=== PATIENT | male | born 1955 | race Caucasian/White ===

== ENCOUNTER 2016-10-09 21:08 | Emergency (ER) | payer BC ==
[2016-10-09] MEDS ORDERED: DILTIAZEM HCL/D5W 125 MG/125 ML RTUINJ IV ONE (21:11)
[2016-10-09] MEDS ORDERED: DILTIAZEM HCL/D5W 125 ML IV PRN (21:11)
[2016-10-09] MEDS ORDERED: NORMAL SALINE 1000 ML 1,000 ML IV PRN ×2 (21:14→22:21)
--- NOTE | 2016-10-09 21:14 | ER Document Report ---
ED Cardiac - General Stated Complaint: GENERAL WEAKNESS Time seen by provider: 21:11 Mode of Arrival: Medic Information source: Patient, Emergency Med Personnel - HPI Patient complains to provider of: Palpitations Was the onset of pain: Sudden Quality of pain: None Associated symptoms: Palpitations Exacerbated by: Denies Relieved by: Nothing Similar symptoms previously: Yes Recently seen / treated by doctor: Yes Notes: Patient is a 61-year-old male with a history of atrial fibrillation, currently takes Cardizem 240 mg daily, denies missing any doses of this, was brought to emergency room by EMS for elevated heart rate, patient denies any chest pain or shortness of breath, he had a physical earlier in the day and received the influenza and pneumonia vaccinations, states he has never had these vaccinations before so he is unsure whether it is a result of these vaccinations , however he does report his heart rate was in the 130s during his appointment he should denies any other recent illness or injury, received 30 mg of IV Cardizem in route via EMS Past Medical History - General Information source: Patient, Emergency Med Personnel - Social History Smoking Status: Current Every Day Smoker Family History: Reviewed & Not Pertinent Review of Systems - Review of Systems Constitutional: No symptoms reported EENT: No symptoms reported Cardiovascular: Palpitations, Heart racing Respiratory: No symptoms reported Gastrointestinal: No symptoms reported Genitourinary: No symptoms reported Male Genitourinary: No symptoms reported Musculoskeletal: No symptoms reported Skin: No symptoms reported Hematologic/Lymphatic: No symptoms reported Neurological/Psychological: No symptoms reported -: Yes All other systems reviewed and negative Physical Exam - Vital signs Vitals: Pulse Ox 98 10/09/16 21:11 Interpretation: Tachycardic - General General appearance: Appears well, Alert - HEENT Head: Normocephalic, Atraumatic Eyes: Normal Pupils: PERRL - Respiratory Respiratory status: No respiratory distress Chest status: Nontender Breath sounds: Normal Chest palpation: Normal - Cardiovascular Rhythm: Irregularly irregular, Tachycardia Murmur: No - Abdominal Inspection: Normal Distension: No distension Bowel sounds: Normal Tenderness: Nontender Organomegaly: No organomegaly - Back Back: Normal, Nontender - Extremities General upper extremity: Normal inspection, Nontender, Normal color, Normal ROM , Normal temperature General lower extremity: Normal inspection, Nontender, Normal color, Normal ROM , Normal temperature, Normal weight bearing. No: Crystal's sign - Neurological Neuro grossly intact: Yes Cognition: Normal Orientation: AAOx4 Yanni Coma Scale Eye Opening: Spontaneous Yanni Coma Scale Verbal: Oriented Yanni Coma Scale Motor: Obeys Commands [place] Coma Scale Total: 15 Speech: Normal Motor strength normal: LUE, RUE, LLE, RLE Sensory: Normal - Psychological Associated symptoms: Normal affect, Normal mood - Skin Skin Temperature: Warm Skin Moisture: Dry Skin Color: Normal Course - Re-evaluation Re-evalutation: 10/10/16 01:58 Patient has been resting comfortably, Cardizem drip his been discontinued for greater than 2 hours, his heart rate has remained less than 100 the entire time , he reports that he wants to go home, we will repeat an EKG and attempt to ambulate patient, patient will likely be discharged home with instructions for follow-up 10/10/16 02:20 Patient able to ambulate with a steady gait, he reports feeling much better and wants to go home, states he will call a cab to get home safely, advised to return if symptoms worsen or any additional concerns, patient acknowledges understanding and agreement with this plan - Vital Signs Vital signs: Temp Pulse Resp BP Pulse Ox 98.2 F 93 16 134/75 H 98 10/10/16 02:30 10/10/16 02:30 10/10/16 02:30 10/10/16 02:30 10/10/16 02:30 - Laboratory Result Diagrams: 10/09/16 21:20 10/09/16 21:20 Laboratory results interpreted by me: 10/09/16 10/09/16 21:20 21:20 WBC 10.6 H RBC 3.91 L MCV 103 H MCH 35.2 H Plt Count 143 L BUN 29 H Creatinine 1.39 H Est GFR (Non-Af Amer) 52 L Calcium 8.2 L - Diagnostic Test Radiology reviewed: Image reviewed, Reports reviewed - EKG Interpretation by Me EKG shows normal: Sinus rhythm Rate: Tachycardia Additional EKG results interpreted by me: 10/10/16 02:20 Repeat EKG shows a normal sinus rhythm at a rate of 95 Critical Care Note - Critical Care Note Total time excluding time spent on procedures (mins): 60 Comments: Patient arrived to the emergency room with tachycardia consistent with A. fib with RVR, requiring IV Cardizem drip Discharge - Discharge Clinical Impression: Atrial fibrillation Qualifiers: Atrial fibrillation type: paroxysmal Qualified Code(s): I48.0 - Paroxysmal atrial fibrillation Acute alcohol intoxication Qualifiers: Complication of substance-induced condition: uncomplicated Qualified Code(s): F10.120 - Alcohol abuse with intoxication, uncomplicated Condition: Stable Disposition: HOME, SELF-CARE Instructions: Atrial Fibrillation ([facility]), Acute Alcohol Intoxication ([facility]), Stop Smoking ([facility]) Additional Instructions: Follow up with your primary care provider in one to 2 days. Return to the emergency room immediately if symptoms worsen or any additional concerns.
[2016-10-09 21:49] LABS: ABSOLUTE BASOPHILS # (AUTO) 0.1 10^3/uL (0.0-0.2); ABSOLUTE EOSINOPHILS # (AUTO) 0.2 10^3/uL (0.0-0.6); ABSOLUTE LYMPHOCYTES (AUTO) 3.6 10^3/uL (0.5-4.7); ABSOLUTE NEUT (AUTO) 5.8 10^3/uL (1.7-8.2); BASOPHILS % (AUTO) 0.5 % (0-2); EOSINOPHILS % (AUTO) 1.7 % (0-6); HEMATOCRIT 40.2 % (37.9-51.0); HEMOGLOBIN 13.8 g/dL (13.5-17.0); HGB HCT DIFFERENCE 1.2; LYMPHOCYTES % (AUTO) 34.1 % (13-45); MEAN CORPUSCULAR HEMOGLOBIN 35.2 pg (27.0-33.4); MEAN CORPUSCULAR HGB CONC 34.3 g/dL (32.0-36.0); MEAN CORPUSCULAR VOLUME 103 fl (80-97); MONOCYTES % (AUTO) 9.4 % (3-13); RED BLOOD COUNT 3.91 10^6/uL (4.35-5.55); RED CELL DISTRIBUTION WIDTH 13.4 % (11.5-14.0); SEGMENTED NEUTROPHILS % (AUTO) 54.3 % (42-78); WHITE BLOOD COUNT 10.6 10^3/uL (4.0-10.5)
[2016-10-09 21:56] LABS: PARTIAL THROMBOPLASTIN TIME 26.2 SEC (23.5-35.8); PROTHROMBIN TIME 13.5 SEC (11.4-15.4)
[2016-10-09 22:05] LABS: ALANINE AMINOTRANSFERASE 36 U/L (21-72); ALBUMIN 3.8 g/dL (3.5-5.0); ALCOHOL 248 mg/dL (NONE DETECTED); ALKALINE PHOSPHATASE 66 U/L (38-126); ANION GAP 12 (5-19); ASPARTATE AMINO TRANSFERASE 53 U/L (17-59); BILIRUBIN,TOTAL 0.5 mg/dL (0.2-1.3); BLOOD UREA NITROGEN 29 mg/dL (7-20); CALCIUM 8.2 mg/dL (8.4-10.2); CARBON DIOXIDE 23 mmol/L (22-30); CHLORIDE 102 mmol/L (98-107); CREATINE KINASE 70 U/L (55-170); CREATININE RESULT 1.39 mg/dL (0.52-1.25); GLUCOSE 81 mg/dL (75-110); SODIUM 137.3 mmol/L (137-145); TOTAL PROTEIN 6.4 g/dL (6.3-8.2)
[2016-10-09 22:17] LABS: CREATINE KINASE MB 1.63 ng/mL (<4.55)
[2016-10-09 22:18] LABS: TROPONIN I < 0.012 ng/mL
[2016-10-10 02:34] VITALS: BP 134/75
--- NOTE | 2016-10-10 13:44 | EKG REPORT ---
SEVERITY:- OTHERWISE NORMAL ECG - SINUS TACHYCARDIA : Confirmed by: Sol Melendrez MD 10-Oct-2016 13:43:23
--- NOTE | 2016-10-10 13:44 | EKG REPORT ---
SEVERITY:- BORDERLINE ECG - SINUS RHYTHM LOW VOLTAGE IN FRONTAL LEADS BORDERLINE T ABNORMALITIES, ANT-LAT LEADS : Confirmed by: Sol Melendrez MD 10-Oct-2016 13:43:18
== END 2016-10-10 02:30 | disposition home or self-care (01) ==
LOC: ER 21:08
DX: I48.0 Paroxysmal atrial fibrillation (principal); F10.120 Alcohol abuse with intoxication, uncomplicated; F17.200 Nicotine dependence, unspecified, uncomplicated; Z79.899 Other long term (current) drug therapy
CPT/HCPCS: 36415; 71010; 80053; 80307; 82550; 82553; 84484; 85025; 85610; 85730; 93005; 93010; 99291

== ENCOUNTER 2017-03-13 22:47 | Observation (INO) | payer BC ==
[2017-03-13 23:05] LABS: ABSOLUTE BASOPHILS # (AUTO) 0.1 10^3/uL (0.0-0.2); ABSOLUTE EOSINOPHILS # (AUTO) 0.1 10^3/uL (0.0-0.6); ABSOLUTE LYMPHOCYTES (AUTO) 3.6 10^3/uL (0.5-4.7); ABSOLUTE MONOCYTES (AUTO) 0.8 10^3/uL (0.1-1.4); ABSOLUTE NEUT (AUTO) 4.7 10^3/uL (1.7-8.2); BASOPHILS % (AUTO) 0.6 % (0-2); EOSINOPHILS % (AUTO) 0.7 % (0-6); HEMATOCRIT 36.3 % (37.9-51.0); HEMOGLOBIN 12.2 g/dL (13.5-17.0); HGB HCT DIFFERENCE 0.3; LYMPHOCYTES % (AUTO) 39.4 % (13-45); MEAN CORPUSCULAR HEMOGLOBIN 35.7 pg (27.0-33.4); MEAN CORPUSCULAR HGB CONC 33.7 g/dL (32.0-36.0); MEAN CORPUSCULAR VOLUME 106 fl (80-97); MONOCYTES % (AUTO) 8.6 % (3-13); RED BLOOD COUNT 3.43 10^6/uL (4.35-5.55); RED CELL DISTRIBUTION WIDTH 13.6 % (11.5-14.0); SEGMENTED NEUTROPHILS % (AUTO) 50.7 % (42-78); WHITE BLOOD COUNT 9.2 10^3/uL (4.0-10.5)
[2017-03-13 23:12] LABS: PROTHROMBIN TIME 12.9 SEC (11.4-15.4)
[2017-03-13 23:13] LABS: PARTIAL THROMBOPLASTIN TIME 24.8 SEC (23.5-35.8)
--- NOTE | 2017-03-13 23:16 | ER Document Report ---
ED General - General Chief Complaint: Syncope Stated Complaint: FALL NECK PAIN Time Seen by Provider: 03/13/17 23:15 Notes: 61-year-old male presents with complaint of a syncopal episode. Patient fell backwards and hit his head in the driveway. Patient says this happened after he got his car. He does not actually remember the fall. He cannot remember if he had chest pain or shortness of breath or palpitations before or after the fall. When paramedics first picked him up he was asking the same questions over and over again. He does have a history of atrial fibrillation. He is not on blood thinners. He does take Cardizem for that. He does admit that he drinks every day. He says he does not go through alcohol withdrawal when he does not drink. Cigarettes. He denies any history of coronary disease. He currently complains of headache in the back of his head he hit his head on the concrete. He also complains of some pain in his lower back and sacral area. He denies recent illnesses or fevers. He has previous history of melanoma but has been cancer free for 10 years. - Related Data Allergies/Adverse Reactions: No Known Allergies Allergy (Unverified 03/14/17 01:30) Past Medical History - Social History Smoking Status: Current Every Day Smoker Frequency of alcohol use: Heavy Drug Abuse: None Family History: Reviewed & Not Pertinent - Past Medical History Cardiac Medical History: Reports: Hx Atrial Fibrillation, Hx Hypertension Review of Systems - Review of Systems Notes: My Normal Review Basic REVIEW OF SYSTEMS: CONSTITUTIONAL : Denies fever, chills, or sweats. Denies recent illness. EENT: Denies eye, ear, throat, or mouth pain or symptoms. Denies nasal or sinus congestion. CARDIOVASCULAR: Denies chest pain. RESPIRATORY: Denies cough, cold, or chest congestion. Denies shortness of breath, difficulty breathing, or wheezing. GASTROINTESTINAL: Denies abdominal pain. Denies nausea, vomiting, or diarrhea. Denies constipation. Last BM: MUSCULOSKELETAL: Denies neck or back pain or joint pain or swelling. SKIN: Denies rash or skin lesions. HEMATOLOGIC : Denies easy bruising or bleeding. NEUROLOGICAL: syncopal episode. has a headache. Denies weakness or paralysis or loss of use of either side. Denies problems with gait or speech. Denies sensory or motor loss. ALL OTHER SYSTEMS REVIEWED AND NEGATIVE. Physical Exam - Vital signs Vitals: Resp Pulse Ox 15 99 03/13/17 22:51 03/13/17 22:51 - Notes Notes: General Appearance: Well nourished, alert, cooperative, no acute distress, mild obvious discomfort. Vitals: reviewed, See vital signs table. Head: no swelling or tenderness to the head Eyes: PERRL, EOMI, Conjuctiva clear Mouth: No decreasd moisture Throat: No tonsillar inflammation, No airway obstruction, No lymphadenopathy Neck: Supple, no neck tendernes Lungs: No wheezing, No rales, No rhonci, No accessory muscle use, good air exchange bilaterally. Heart: Normal rate, Regular rythm, No murmur, no rub Abdomen: Normal BS, soft, No rigidity, No abdominal tenderness, No guarding, no rebound, no abdominal masses, no organomegaly. Large surgical scar on abdomen. Back: No thoracic tenderness to plpation. Pain to palpation over lumbar sacral joint. no stepoffs or deformities. Extremities: strength 5/5 in all extremities, good pulses in all extremities, no swelling or tenderness in the extremities, no edema. Skin: warm, dry, appropriate color, no rash Neuro: speech clear, oriented x 3, normal affect, responds appropriately to questions. Cranial nerves 2-12 are intact. distal sensation intact. Patient has good and equal strength in all 4 extremities. Course - Vital Signs Vital signs: Temp Pulse Resp BP Pulse Ox 98.3 F 14 103/88 H 96 03/14/17 01:15 03/14/17 01:45 03/14/17 00:15 03/14/17 01:45 - Laboratory Result Diagrams: 03/13/17 22:55 03/13/17 22:55 Laboratory results interpreted by me: 03/13/17 03/13/17 22:55 22:55 RBC 3.43 L Hgb 12.2 L Hct 36.3 L MCV 106 H MCH 35.7 H Potassium 3.2 L Calcium 8.2 L Direct Bilirubin 0.5 H - EKG Interpretation by Me Additional EKG results interpreted by me: 03/13/17 23:16 Is reviewed and interpreted by me. EKG shows sinus rhythm with a rate of [address] segment elevation or depression. Patient does have new T-wave inversions in the lateral precordial leads in comparison to her old EKG from October 10, 2016. MI interval, QRS duration, QTc intervals are within normal range. 03/14/17 02:01 EKG #2 is reviewed and interpreted by me. EKG shows normal sinus rhythm with a rate of [address] segment elevation or depression. Patient does have some T-wave inversions in the lateral precordial leads which are not progressing and are unchanged in comparison to the EKG performed earlier today. MI interval, QRS duration are within normal range. QTc interval is prolonged. - Transfer of Care Notes: 03/14/17 02:15 Patient has been awake and appropriate since arriving to the ER. The scans are negative. His initial heart enzymes are negative. My only concern is that he does have some T-wave inversions in the lateral precordial leads which are new in comparison to his old EKG. I did repeat his EKG and they have not progressed. His cardiac enzymes remain negative and he has no chest pain. He does have history of A. fib but currently is not in atrial fibrillation. I spoke with the hospitalist who agrees to admit the patient for further workup of his syncope. Dictation of this chart was performed using voice recognition software; therefore, there may be some unintended grammatical errors. Discharge - Discharge Clinical Impression: Syncope Qualifiers: Syncope type: unspecified Qualified Code(s): R55 - Syncope and collapse Condition: Stable Disposition: ADMITTED OBSERVATION Admitting Provider: Hospitalist Unit Admitted: Telemetry
--- NOTE | 2017-03-13 23:20 | RADIOLOGY REPORT (SQ) ---
EXAM DESCRIPTION: CT HEAD WITHOUT COMPLETED DATE/TIME: 03/13/2017 11:12 pm REASON FOR STUDY: fall COMPARISON: None. TECHNIQUE: Axial images acquired through the brain without intravenous contrast. Images reviewed wi th bone, brain and subdural windows. Images stored on PACS. All CT scanners at this facility use dose modulation, iterative reconstruction, and/or weight based d osing when appropriate to reduce radiation dose to as low as reasonably achievable (ALARA). [facility]: Dose Right [facility]: CareDose [facility]: Dose Right [facility]: Teradose 4D [facility]: [employer] RADIATION DOSE: 64.61mGy. LIMITATIONS: None. FINDINGS: VENTRICLES: Prominent. CEREBRUM: No masses. No hemorrhage. No midline shift. Areas of low density in the white matter mos t likely due to chronic micro-vascular ischemic change. No evidence for acute infarction. CEREBELLUM: No masses. No hemorrhage. No alteration of density. No evidence for acute infarction. EXTRAAXIAL SPACES: Age-related involutional change. No fluid collections. No masses. ORBITS AND GLOBE: No intra- or extraconal masses. Normal contour of globe without masses. CALVARIUM: No fracture. PARANASAL SINUSES: No fluid or mucosal thickening. SOFT TISSUES: No mass or hematoma. OTHER: No other significant finding. IMPRESSION: CHRONIC CHANGES OF ATROPHY AND MICROVASCULAR ISCHEMIA. NO ACUTE PROCESS. TECHNICAL DOCUMENTATION: JOB ID: [id number] Quality ID # [id number]: Final reports with documentation of one or more dose reduction techniques (e.g., Au tomated exposure control, adjustment of the mA and/or kV according to patient size, use of iterative reconstruction technique) 2010 [employer]- All Rights Reserved
--- NOTE | 2017-03-13 23:21 | RADIOLOGY REPORT (SQ) ---
EXAM DESCRIPTION: CT CERVICAL SPINE WITHOUT COMPLETED DATE/TIME: 03/13/2017 11:12 pm REASON FOR STUDY: fall COMPARISON: None. TECHNIQUE: Axial images acquired through the cervical spine without intravenous contrast. Images re viewed with lung, soft tissue and bone windows. Reconstructed coronal and sagittal MPR images review ed. Images stored on PACS. All CT scanners at this facility use dose modulation, iterative reconstruction, and/or weight based d osing when appropriate to reduce radiation dose to as low as reasonably achievable (ALARA). [facility]: Dose Right [facility]: CareDose [facility]: Dose Right [facility]: Teradose 4D [facility]: [employer] RADIATION DOSE: 27.71 mGy. LIMITATIONS: None. FINDINGS: ALIGNMENT: Anatomic. MINERALIZATION: Normal. VERTEBRAL BODIES: No fractures or dislocation. DISCS: Multilevel disc space narrowing with osteophytes. FACETS, LATERAL MASSES, POSTERIOR ELEMENTS: Facet arthropathy. No fractures. No dislocation. No ac iesha findings. HARDWARE: None in the spine. VISUALIZED RIBS: No fractures. LUNG APICES AND SOFT TISSUES: No significant or acute findings. OTHER: No other significant finding. IMPRESSION: CHRONIC DEGENERATIVE CHANGES. NO ACUTE FINDINGS. TECHNICAL DOCUMENTATION: JOB ID: [id number] Quality ID # [id number]: Final reports with documentation of one or more dose reduction techniques (e.g., Au tomated exposure control, adjustment of the mA and/or kV according to patient size, use of iterative reconstruction technique) 2010 [employer]- All Rights Reserved
[2017-03-13 23:33] LABS: ALANINE AMINOTRANSFERASE 69 U/L (21-72); ALBUMIN 3.6 g/dL (3.5-5.0); ALKALINE PHOSPHATASE 68 U/L (38-126); ANION GAP 12 (5-19); ASPARTATE AMINO TRANSFERASE 55 U/L (17-59); BILIRUBIN,DIRECT 0.5 mg/dL (0.0-0.4); BILIRUBIN,TOTAL 0.6 mg/dL (0.2-1.3); BLOOD UREA NITROGEN 13 mg/dL (7-20); CALCIUM 8.2 mg/dL (8.4-10.2); CARBON DIOXIDE 25 mmol/L (22-30); CHLORIDE 103 mmol/L (98-107); CREATINE KINASE 65 U/L (55-170); GLUCOSE 99 mg/dL (75-110); POTASSIUM 3.2 mmol/L (3.6-5.0); SODIUM 139.6 mmol/L (137-145); TOTAL PROTEIN 6.4 g/dL (6.3-8.2)
[2017-03-13 23:45] LABS: CREATINE KINASE MB 1.03 ng/mL (<4.55)
[2017-03-13 23:49] LABS: TROPONIN I < 0.012 ng/mL
[2017-03-14 00:28] LABS: MAGNESIUM 1.8 mg/dL (1.6-2.3)
[2017-03-14 00:35] LABS: APPEARANCE,URINE CLEAR; BILIRUBIN,URINE NEGATIVE (NEGATIVE); GLUCOSE, URINE NEGATIVE (NEGATIVE); KETONES,URINE NEGATIVE (NEGATIVE); LEUKOCYTE ESTERASE,URINE NEGATIVE (NEGATIVE); NITRITE,URINE NEGATIVE (NEGATIVE); PROTEIN,URINE NEGATIVE (NEGATIVE); URINE SPECIFIC GRAVITY 1.004; UROBILINOGEN,URINE NEGATIVE mg/dL (<2.0)
[2017-03-14 01:05] LABS: URINE BARBITURATES SCREEN NEGATIVE; URINE METHADONE SCREEN NEGATIVE; URINE OPIATES LOW UNCONFIRMED POSITIVE; URINE PHENCYCLIDINE SCREEN NEGATIVE
[2017-03-14] MEDS ORDERED: ACETAMINOPHEN 325 MG TABLET PO ONE (01:35)
--- NOTE | 2017-03-14 01:57 | RADIOLOGY REPORT (SQ) ---
EXAM DESCRIPTION: CT LUMBAR SPINE WITHOUT COMPLETED DATE/TIME: 03/14/2017 1:12 am REASON FOR STUDY: trauma COMPARISON: None. TECHNIQUE: Axial images acquired through the lumbar spine without intravenous contrast. Images revi ewed with lung, soft tissue and bone windows. Reconstructed coronal and sagittal MPR images reviewed . All images stored on PACS. All CT scanners at this facility use dose modulation, iterative reconstruction, and/or weight based d osing when appropriate to reduce radiation dose to as low as reasonably achievable (ALARA). [facility]: Dose Right [facility]: CareDose [facility]: Dose Right [facility]: Teradose 4D [facility]: [employer] RADIATION DOSE: 18.59 mGy. LIMITATIONS: None. FINDINGS: SEGMENTATION: Normal. No transitional anatomy. ALIGNMENT: Normal. VERTEBRAL BODIES: No fractures. No dislocation. No acute findings. DISCS: No significant protrusions. Study limited by lack of intrathecal contrast. PEDICLES, TRANSVERSE PROCESSES: No fractures. No dislocation. No acute findings. Mild disc desicca tion. L3-L4: 0.2 cm L3 retrolisthesis. L4-L5: Small disc bulge causes mild spinal canal narrowing. Mild bilateral foraminal stenosis. L5-S1: Moderate L5 foraminal stenosis, left more than right. Moderate spondylosis. FACETS, POSTERIOR ELEMENTS: No fractures. No dislocation. No spinal stenosis. HARDWARE: Surgical clips of the upper abdomen. VISUALIZED RIBS: No fractures. SOFT TISSUES: No significant or acute finding in adjacent soft tissues. 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 IMPRESSION: No acute findings. Moderate left L5 foraminal stenosis due to degenerative spondylosis. TECHNICAL DOCUMENTATION: JOB ID: [id number] Quality ID # [id number]: Final reports with documentation of one or more dose reduction techniques (e.g., Au tomated exposure control, adjustment of the mA and/or kV according to patient size, use of iterative reconstruction technique) 2010 [employer]- All Rights Reserved
[2017-03-14] MEDS ORDERED: POTASSIUM CHLORIDE 20 MEQ/15 ML UDCUP PO ONE (02:16)
[2017-03-14] MEDS ORDERED: THIAMINE HCL 100 MG TABLET PO ONE (02:17)
--- NOTE | 2017-03-14 02:27 | RADIOLOGY REPORT (SQ) ---
EXAM DESCRIPTION: CHEST SINGLE VIEW COMPLETED DATE/TIME: 03/14/2017 2:04 am REASON FOR STUDY: syncope COMPARISON: None. EXAM PARAMETERS: NUMBER OF VIEWS: One view. TECHNIQUE: Single frontal radiographic view of the chest acquired. RADIATION DOSE: NA LIMITATIONS: None. FINDINGS: LUNGS AND PLEURA: No opacities, masses or pneumothorax. No pleural effusion. MEDIASTINUM AND HILAR STRUCTURES: No masses. Contour normal. HEART AND VASCULAR STRUCTURES: Heart normal in size. Normal vasculature. BONES: No acute findings. HARDWARE: Bilateral axillary clips. OTHER: No other significant finding. IMPRESSION: NO ACUTE RADIOGRAPHIC FINDING IN THE CHEST. TECHNICAL DOCUMENTATION: JOB ID: [id number]
[2017-03-14] MEDS ORDERED: NICOTINE 14 MG/24 HR PATCH.TD24 TD PRN (04:04)
[2017-03-14] MEDS ORDERED: HYDROCORTISONE 10 MG TABLET PO ONE ×2 (04:06→10:00)
[2017-03-14] MEDS ORDERED: NORMAL SALINE 1000 ML 1,000 ML IV PRN (04:13)
[2017-03-14] MEDS ORDERED: PROMETHAZINE HCL 25 MG TABLET PO PRN (04:13)
[2017-03-14] MEDS ORDERED: MAG HYDROX/AL HYDROX/SIMETH SUSP 30 ML UDCUP PO PRN ×2 (04:13→09:35)
[2017-03-14] MEDS: POTASSIUM CHLORIDE 20 MEQ/15 ML UDCUP PO SCH ×2 (04:13→05:15)
[2017-03-14] MEDS ORDERED: ACETAMINOPHEN 325 MG TABLET PO PRN (04:14)
[2017-03-14] MEDS ORDERED: OXYCODONE HCL IR 5 MG TABLET PO PRN (04:35)
--- NOTE | 2017-03-14 04:51 | PDOC H&P ---
History of Present Illness Admission Date/PCP: 03/14/17 02:24 Dr. 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 Patient has been discussed with emergency room physician who evaluated the patient. Shortly after returning home from [employer] food restaurant, after he got out of his car, he awoke on the ground. Not sure how long he was down. Complete loss of consciousness. Struck back of his head, with complaints of mild headache, now basically resolved. Does not remember any specific symptoms either immediately prior or after the above event. Earlier in the day, had no complaints, including nausea vomiting, fever chills, chest or abdominal pain. Similar episode one year ago when he passed out in the bathtub. Did not seek medical attention at that time. No recent change in his medications. He is compliant with his medications. States he has a sensation of fluttering in his chest approximately once a month. No recent episodes of same, including prior to the above event. Abnormal EKG 2, with T-wave inversion, not noted on prior tracing from September of this year. Currently resting quietly, without specific complaint. Laboratory results are listed in [facility] and are reviewed. X-ray summary results are listed below, with full report(s) reviewed. . EKGs reviewed and compared to prior tracing from October 10 of this year.. Social history/personal habits: . Has children. On disability due to prior extensive surgery for melanoma from his back, including what sounds to be bilateral axillary lymph node dissection, along with bilateral adrenalectomy. Alcohol and tobacco use as noted above. Denies illicit drug use. Allergies/adverse reactions are listed in [facility] and are reviewed. Home medications initially autopopulated into [facility] may not accurately reflect patient's true medications, dosages, and/or frequencies. inside technical sales representative to reconcile medications. Unfortunately, patient not certain of all medications/dosages/frequencies. REVIEW OF SYSTEMS: Constitutional: No fever or chills. Eyes: Wears glasses. ENT: No swallowing problems or complaints. Denies hearing loss. Pulmonary: No current complaints. Cardiovascular: See history and present illness. Gastrointestinal: No current complaints, including nausea or vomiting. Skin: No current complaints, including rashes. Hematologic: Easy bruising. Neurologic: See history and present illness. Musculoskeletal: Joint pain from arthritis. Psychiatric: Mild depression, without suicidal or homicidal ideation. Endocrine: No current complaints, including polyuria. Genitourinary: No current complaints, including dysuria. PHYSICAL EXAMINATION: Neither height nor weight are recorded on the chart. Blood pressure 103/67. Pulse 79 and regular. 98% saturation on room air. Respirations are 13 and unlabored. Temperature 98.6. Well-nourished well-developed though somewhat chronically ill-appearing male, who appears perhaps a bit older than his stated age. Initially asleep, but awakens easily. Pleasant alert and cooperative. No obvious distress other than perhaps mildly anxious. Skin is warm and dry. No grossly obvious evidence of rash in areas of skin examined. No subcutaneous nodules palpated. ENT: Hearing grossly normal to normal conversation. Tongue midline on protrusion pink and slightly tacky. No chan sign. Eyes: No scleral icterus. Pupils equal and reactive to light at 4 mm. [place] conjunctivae. No raccoon eyes. Neck is supple and nontender to gentle active range of motion and palpation. Midline trachea. No palpable thyroid nodule mass enlargement or tenderness. Lymphatic: No palpable cervical or clavicular nodes. Neck and lymphatic exams limited by patient body habitus. Psychiatric: Reasonable insight into acute and chronic medical issues. Oriented to time location and why here. Lungs: Auscultation reveals clear and equal breath sounds bilaterally. No use of accessory respiratory muscles. Cardiovascular: Heart regular rate and rhythm, without gallop murmur or rub. No carotid or abdominal aortic bruits. No ankle or pedal edema. Palpable dorsalis pedis pulses. Abdomen:soft slightly distended nontender with positive bowel sounds. Unable to adequately evaluate abdomen for masses or organomegaly due to distention. Extremities: Feet are warm and dry. No calf tenderness to compression. No grossly obvious visual evidence of calf swelling. Gentle manipulation of lower extremities fails to reveal any obvious evidence of injury or instability to knees hips or ankles. circumferential clean dry intact gauze dressing on his left elbow/proximal forearm, which he struck when he fell. Dressing left in place. Neurologic: Moves upper extremities grossly normally. Patellar reflexes absent. Absent Babinski. Light touch is intact at feet. Dorsiflexion and plantarflexion of feet 5 / 5 and symmetric. Past Medical History Cardiac Medical History: Reports: Atrial Fibrillation - Paroxysmal; not on systemic anticoagulation., Hyperlipidema, Hypertension Denies: Congestive Heart Failure, DVT, Myocardial Infarction, Pulmonary Embolism Pulmonary Medical History: Denies: Asthma, Chronic Obstructive Pulmonary Disease (COPD), Sleep Apnea EENT Medical History: Reports: Eyes - Glasses Denies: Ears, Throat Neurological Medical History: Denies: Hemorrhagic CVA, Ischemic CVA, Seizures Endocrine Medical History: Reports: Other - steroid-dependence, due to bilateral adrenalectomy for melanoma Denies: Diabetes Mellitus Type 1, Diabetes Mellitus Type 2, Hyperthyroidism, Hypothyroidism Renal/ Medical History: Reports: None Malignancy Medical History: Reports: Skin Cancer - Melanoma, status post extensive surgery for same GI Medical History: Reports: Other - "Stomach problems" could be no more specific than this. Denies: Cirrhosis, Hepatitis, Peptic Ulcer Disease Musculoskeltal Medical History: Reports: Arthritis Psychiatric Medical History: Reports: Alcohol Dependency, Depression - Denies suicidal or homicidal ideation., Tobacco Dependency Denies: General Anxiety Disorder, Substance Abuse Hematology: Reports: Other - Easy bruising Infectious Medical History: Denies: Clostridium Difficile, Hepatitis B, Hepatitis C, Methicillin- Resistant Staph Aureus Past Surgical History Past Surgical History: Reports: Other - Extensive surgery for melanoma-- bilateral axillary dissection/adrenalectomy Social History Information Source: Patient, Emergency Med Personnel, [facility] Records Smoking Status: Current Every Day Smoker Frequency of Alcohol Use: Heavy Drugs: None - Advance Directive Resuscitation Status: Full Code Surrogate healthcare decision maker:: Uncertain at this point in time. Family History Family History: Reviewed & Not Pertinent Parental Family History Reviewed: Yes - Parents alive and relatively healthy Children Family History Reviewed: Yes Sibling(s) Family History Reviewed.: Yes - Brother status post liver transplant alcohol? Medication/Allergy Home Medications: Diltiazem HCl [Diltiazem 24Hr ER] 120 mg PO DAILY 03/14/17 Fluoxetine HCl [Prozac 20 mg Capsule] 20 mg PO Q12 03/14/17 Hydrocodone/Acetaminophen [Hydrocodon-Acetaminoph 7.5-325] 1 tab PO Q6HP PRN Hydrocortisone [Cortef] 10 mg PO QHS 03/14/17 Hydrocortisone [Cortef] 15 mg PO DAILY 03/14/17 Ibuprofen [Motrin 800 mg Tablet] 800 mg PO Q8HP PRN 03/14/17 Methocarbamol [Robaxin 500 mg Tablet] 500 mg PO Q12HP PRN 03/14/17 Ondansetron [Ondansetron Odt] 8 mg PO Q8HP PRN 03/14/17 Allergies/Adverse Reactions: morphine Adverse Reaction (Verified 03/14/17 04:35) itching Physical Exam Vital Signs: Temp Pulse Resp BP Pulse Ox 97.6 F 85 18 104/64 85 L 03/14/17 03:09 03/14/17 03:07 03/14/17 03:09 03/14/17 03:09 03/14/17 03:09 Results Impressions: Cervical Spine CT 03/13/17 00:00 IMPRESSION: CHRONIC DEGENERATIVE CHANGES. NO ACUTE FINDINGS. Head CT 03/13/17 00:00 IMPRESSION: CHRONIC CHANGES OF ATROPHY AND MICROVASCULAR ISCHEMIA. NO ACUTE PROCESS. Lumbar Spine CT 03/13/17 23:24 IMPRESSION: No acute findings. Moderate left L5 foraminal stenosis due to degenerative spondylosis. Chest X-Ray 03/14/17 01:42 IMPRESSION: NO ACUTE RADIOGRAPHIC FINDING IN THE CHEST. Assessment & Plan - Diagnosis (1) Abnormal EKG Is this a current diagnosis for this admission?: YesPlan: Chest pain-free. Will trend troponins, and obtain lipid panel along with repeat EKG. (2) Alcohol intoxication Qualifiers: Complication of substance-induced condition: uncomplicated Qualified Code(s): F10.920 - Alcohol use, unspecified with intoxication, uncomplicated Is this a current diagnosis for this admission?: Yes (3) Hypokalemia Is this a current diagnosis for this admission?: YesPlan: Potassium replacement along with follow-up chemistry. (4) Syncope Qualifiers: Syncope type: unspecified Qualified Code(s): R55 - Syncope and collapse Is this a current diagnosis for this admission?: YesPlan: Suspect at least in part due to acute alcohol intoxication, along with possibly hypokalemia. Orthostatic vital signs every 4 hours while awake, starting at 7 AM today. I have strongly encouraged patient not to get out of bed without notifying staff , to avoid a fall with injury. Knee high SCDs for DVT prophylaxis, along with subcutaneous Lovenox. Impression and plans were discussed with patient who concurs. Time spent in evaluation and management of patient: 68 minutes. (5) Alcohol dependence Qualifiers: Substance use status: unspecified alcohol-induced disorder Qualified Code(s): F10.29 - Alcohol dependence with unspecified alcohol-induced disorder Is this a current diagnosis for this admission?: YesPlan: Daily multivitamin, thiamine, and folic acid. Observe closely for signs of withdrawal. (6) HLD (hyperlipidemia) Qualifiers: Hyperlipidemia type: unspecified Qualified Code(s): E78.5 - Hyperlipidemia, unspecified Is this a current diagnosis for this admission?: YesPlan: Resume home medications as appropriate once these have been determined and reviewed. (7) Paroxysmal atrial fibrillation Is this a current diagnosis for this admission?: YesPlan: Resume home medications as appropriate once these have been determined and reviewed. (8) Tobacco dependency Is this a current diagnosis for this admission?: YesPlan: As needed nicotine patch.
[2017-03-14 05:56] LABS: CHOLESTEROL 169.94 mg/dL (0-200); Direct HDL 75 mg/dL (>40); TRIGLYCERIDES 74 mg/dL (<150)
[2017-03-14 06:07] LABS: DIRECT LDL 79 mg/dL (<100)
--- NOTE | 2017-03-14 09:07 | Progress Note ---
Provider Note Provider Note: RAMONA VASQUES Search Criteria: Last Name 'Ramona' and First Name 'Brandon' and = ' and Request Period = '09/15/16' to 03/14/17' - 4 out of 4 Recipients Selected. Fill Date Product, Str, Form Qty Days Pt ID Prescriber Written RX# N/R* Pharm MED+ ------ ---- --------- --- ------- ----- --------- 02/21/2017 HYDROCODON-ACETAMINOPH 7.5-325 120.00 30 [id number] 2016 [id number] N [id number] 30.0 01/24/2017 HYDROCODON-ACETAMINOPH 7.5-325 120.00 30 [id number] 2016 [id number] N [id number] 30.0 12/28/2016 MORPHINE SULF ER 15 MG TABLET 10.00 10 [id number] 12/28/2016 [id number] N [id number] 15.0 12/28/2016 HYDROCODON-ACETAMINOPH 7.5-325 120.00 30 [id number] 2016 [id number] N [id number] 30.0 11/29/2016 HYDROCODON-ACETAMINOPH 7.5-325 120.00 30 [id number] 2016 [id number] N [id number] 30.0 11/02/2016 HYDROCODON-ACETAMINOPH 7.5-325 120.00 30 [id number] 2016 [id number] N [id number] 30.0 10/05/2016 HYDROCODON-ACETAMINOPH 7.5-325 120.00 30 [id number] 2016 [id number] N [id number] 30.0 [id number] JESSICA MARTIN D, RYLAND BARBOSA; [facility], [facility] [id number] RODOLFO GEORGE[facility] [id number] [facility] [address] Pharmacies that dispensed prescriptions listed [id number] MALIK ORELLANA; [employer]: [facility] # [id number], [address] [facility] [id number],
--- NOTE | 2017-03-14 09:18 | EKG REPORT ---
SEVERITY:- ABNORMAL ECG - SINUS RHYTHM PROBABLE LEFT ATRIAL ABNORMALITY LOW VOLTAGE IN FRONTAL LEADS ABNORMAL T, CONSIDER ISCHEMIA, DIFFUSE LEADS BORDERLINE PROLONGED QT INTERVAL : Confirmed by: Branden Celaya 14-Mar-2017 09:18:07
--- NOTE | 2017-03-14 09:19 | EKG REPORT ---
SEVERITY:- ABNORMAL ECG - SINUS RHYTHM LOW VOLTAGE IN FRONTAL LEADS ABNORMAL T, CONSIDER ISCHEMIA, DIFFUSE LEADS : Confirmed by: Branden Celaya 14-Mar-2017 09:18:14
[2017-03-14] MEDS ORDERED: ENOXAPARIN SODIUM INJ 40 MG/0.4 ML DISP.SYRIN SUBCUT SCH (10:00)
[2017-03-14] MEDS ORDERED: THIAMINE HCL 100 MG TABLET PO SCH (10:00)
[2017-03-14] MEDS ORDERED: ASPIRIN 81 MG TABLET, ENT COATED PO SCH (10:00)
[2017-03-14] MEDS ORDERED: FOLIC ACID 1 MG TABLET PO SCH (10:00)
[2017-03-14] MEDS ORDERED: MULTIVITAMIN TABLET PO SCH (10:00)
[2017-03-14] MEDS ORDERED: DOCUSATE SODIUM 100 MG CAPSULE PO SCH (10:00)
[2017-03-14 11:14] LABS: ABSOLUTE LYMPHOCYTES (AUTO) 1.6 10^3/uL (0.5-4.7); ABSOLUTE MONOCYTES (AUTO) 0.5 10^3/uL (0.1-1.4); ABSOLUTE NEUT (AUTO) 3.6 10^3/uL (1.7-8.2); BASOPHILS % (AUTO) 0.6 % (0-2); EOSINOPHILS % (AUTO) 0.8 % (0-6); HEMATOCRIT 32.6 % (37.9-51.0); HGB HCT DIFFERENCE 0.4; LYMPHOCYTES % (AUTO) 28.1 % (13-45); MEAN CORPUSCULAR HEMOGLOBIN 35.7 pg (27.0-33.4); MEAN CORPUSCULAR HGB CONC 33.9 g/dL (32.0-36.0); MEAN CORPUSCULAR VOLUME 105 fl (80-97); MONOCYTES % (AUTO) 8.7 % (3-13); RED BLOOD COUNT 3.09 10^6/uL (4.35-5.55); RED CELL DISTRIBUTION WIDTH 13.9 % (11.5-14.0); SEGMENTED NEUTROPHILS % (AUTO) 61.8 % (42-78); WHITE BLOOD COUNT 5.8 10^3/uL (4.0-10.5)
[2017-03-14 11:40] LABS: ANION GAP 9 (5-19); BLOOD UREA NITROGEN 10 mg/dL (7-20); CALCIUM 8.1 mg/dL (8.4-10.2); CARBON DIOXIDE 21 mmol/L (22-30); CHLORIDE 111 mmol/L (98-107); CREATININE RESULT 0.88 mg/dL (0.52-1.25); GLUCOSE 86 mg/dL (75-110); POTASSIUM 3.6 mmol/L (3.6-5.0); SODIUM 140.5 mmol/L (137-145)
--- NOTE | 2017-03-14 16:48 | DISCHARGE SUMMARY E ---
Discharge Summary NAME: LAYO GRENEE : 1955 AGE: 61Y ADMITTED: 03/14/2017 DISCHARGED: 03/14/2017 CODE STATUS: FULL CODE. PRIMARY CARE PROVIDER: Dr. Lantigua DISCHARGE DIAGNOSES: 1. Adrenal insufficiency. 2. Syncope secondary to #1. 3. Noncompliance. 4. Acute alcohol intoxication. 5. Hypokalemia resolved. 6. Alcohol dependency. 7. Opiate dependency. 8. Hypertension. 9. Paroxysmal atrial fibrillation. DISCHARGE MEDICATIONS: 1. Cardizem ER 120 mg p.o. daily. 2. Prozac 20 mg p.o. q.12 hours. 3. Vicodin 7.5/325 one tablet p.o. q.6 hours p.r.n. 4. Cortef 15 mg p.o. daily. 5. Cortef 10 mg p.o. at hour sleep. 6. Motrin 800 mg p.o. q.8 hours p.r.n. 7. Robaxin 500 mg p.o. q.12 hours p.r.n. 8. Zofran 8 mg p.o. q.8 hours p.r.n. DIET: As tolerated. ACTIVITY: No driving until cleared by primary care provider. HISTORY OF PRESENT ILLNESS: The patient is a 61-year-old male with a past medical history of adrenal insufficiency secondary to surgery as well as alcohol dependency. The patient presented to the emergency department with a chief compliant of syncope. The patient who is a heavy smoker as well as drinker presented to the emergency department after he lost consciousness in the parking lot of a fast food restaurant. The patient did not remember any specific symptoms either immediately or after the event. He denied any fevers or chills. No acute illness recently. The patient had a similar episode about a year ago and the patient was referred to the hospitalist for admission and management. HOSPITAL COURSE: The patient was observed in continuous telemetry unit. Serial cardiac enzymes were obtained, all of which were non-suggestive. The patient had no events on the secured entrance monitor. The patient was resumed on his home medications. The patient had no further replication of symptoms. The patient candidly admitted that he does not take his medications on a routine basis and feels that he may have not taken his Solu-Cortef for a couple of days therefore leading to orthostatic hypotension. The patient was instructed of the absolute importance of adherence to this and was given a dose while in the hospital. The patient is quite eager for discharge and has agreed to followup with his primary care provider. It appears that the patient actually had been operating his motor vehicle yesterday, however, given his elevated alcohol level was told that he does not need to drive and taxi transportation was arranged. DIAGNOSTICS: Lab values are as follows: Hematology obtained on 03/14/2017: WBCs are 5.8, hemoglobin is 11.0, hematocrit is 32.6, platelet count is 145,000. Coagulation obtained on 03/13/2017: PT is 12.9, INR is 0.91. Chemistry obtained on 03/14/2017: Sodium is 140, potassium 4.6, chloride is 111, carbon dioxide 21, BUN 10, creatinine is 0.88, glucose 86, calcium is 8.1, magnesium is 1.8. Troponin is less than 0.012. Triglycerides are 74, cholesterol 169, LDL 79, VLDL 15, HDL 75, TSH is 1.29. Total bilirubin is 0.6, AST 55, ALT is 69, alk phos 68, CK 65. Urinalysis obtained on 03/14/2017: Color straw, appearance clear, pH 7.0, specific gravity 1.004, protein negative, glucose negative, ketones negative, occult blood negative, nitrate negative, bilirubin negative, urobilinogen negative, leukocyte esterase negative, WBC 1, RBC 0, bacteria trace, mucous rare, ascorbic acid negative. Toxicology screen obtained on 03/14/2017: Serum alcohol is 296. Opiates are positive. PHYSICAL EXAMINATION: GENERAL: On examination, the patient is a well-developed, well-nourished, 61-year-old male who is awake, alert, and oriented to person, place, and situation. He is verbal, conversational, ambulatory, and does not appear to be in any acute distress. VITAL SIGNS: Temperature 98.4, pulse 92, respirations 16, blood pressure 127/99, oxygen saturation is 99% on room air. SKIN: Warm and dry. No rash. Not diaphoretic. HEENT: Pupils equal, round, reactive to light and accommodation. Conjunctivae are pink. No JVP. CARDIOVASCULAR: Heart is regular with no murmur or rub. CHEST: Clear, symmetrical, unlabored. ABDOMEN: Soft, nontender, nondistended. BACK: No CVA tenderness or sacral edema. EXTREMITIES: No clubbing, cyanosis, or edema. DISCHARGE PLANNING: The patient is advised to followup with his primary care provider within 1 week for hospital followup. Time spent on this followup including assessment, plan, physical examination, patient education, and review of records was 35 minutes. DICTATING PHYSICIAN: GARCIA SHIELDS NP [id number] PHY#: [id number] ID: [id number] JOB#: [id number] ACCT: [id number] cc:RADHA CHAVEZ M.D., MICHAEL NP >
[2017-03-14] MEDS ORDERED: HYDROCORTISONE 10 MG TABLET PO SCH ×2 (22:00)
--- NOTE | 2017-03-14 22:32 | EKG REPORT ---
SEVERITY:- ABNORMAL ECG - SINUS RHYTHM PROBABLE LEFT ATRIAL ABNORMALITY ABNORMAL T, CONSIDER ISCHEMIA, LATERAL LEADS : Confirmed by: Branden Celaya 14-Mar-2017 22:31:42
[2017-03-15] MEDS ORDERED: HYDROCORTISONE 10 MG TABLET PO SCH ×2 (08:00)
[2017-03-17 01:18] VITALS: BP 127/99
== END 2017-03-14 13:26 | disposition home or self-care (01) ==
LOC: ER 22:47 → EH 03-14 02:24 → UNDOADMOB 03-14 02:24 → EH 03-14 04:13 → 3N 03-14 04:22 → EH 03-14 04:22
PROVIDERS: ADMIT Family Medicine; ATTEND Family Medicine
DX: E27.40 Unspecified adrenocortical insufficiency (principal); R55 Syncope and collapse; Z91.19 Patient's noncompliance with other medical treatment and regimen; F10.229 Alcohol dependence with intoxication, unspecified; Y90.8 Blood alcohol level of 240 mg/100 ml or more; E87.6 Hypokalemia; F11.20 Opioid dependence, uncomplicated; I10 Essential (primary) hypertension; I48.0 Paroxysmal atrial fibrillation; E78.5 Hyperlipidemia, unspecified; M54.5 Low back pain; M53.3 Sacrococcygeal disorders, not elsewhere classified; F17.210 Nicotine dependence, cigarettes, uncomplicated; F19.20 Other psychoactive substance dependence, uncomplicated; M54.2 Cervicalgia; R51 Headache; W19.XXXA Unspecified fall, initial encounter; Y92.481 Parking lot as the place of occurrence of the external cause; Z85.820 Personal history of malignant melanoma of skin; E89.6 Postprocedural adrenocortical (-medullary) hypofunction; Z83.79 Family history of other diseases of the digestive system
CPT/HCPCS: 93005 ×3; 99285; 36415 ×2; 82553; 80307 ×2; 82550; 83735; 84443; 85025 ×2; 85610; 85730; 80048; 80053; 81001; 84484 ×2; 80061; 71010; 70450; 72125; 72131; 93010 ×2; G0378 ×2; J3490; J1650; J7030